=== PATIENT | female | born 1980 | race Caucasian/White ===

== ENCOUNTER 2019-08-17 06:00 | Emergency (ER) | payer OTHER ==
[2019-08-17 07:08] VITALS: TEMP 97.5; BMI 32.5
--- NOTE | 2019-08-17 07:48 | PDOC ---
History of Present Illness - General Chief Complaint: Vaginal Bleeding Stated Complaint: VAGINAL BLEEDING, 15 WKS Time Seen by Provider: 08/17/19 07:34 - History of Present Illness Initial Comments: 08/17/19 08:25 HPI: 39 y/o F ~15-16 weeks gestation by LMP 05/05/19 with hx of pre-DM and HLD presenting with vaginal bleeding since last night. She states it occurred when she went to urinate and was present only on tissue paper. Quantity was scant. She denied any blood clot or hematuria. She reports she's had BL lower abd pain for over a week but when she saw her Ob this past week she was told it was normal. There has been no change in quality, frequency, or intensity of pain. She also reports burning on urination and increased frequency of urination over the past week. She denies fever, chills, chest pain, SHORT, SOB. Of note, she has just established care with her Ob this week and has been scheduled for her first US 1 week from today. PMHx: as noted above ROS: as noted SHx: Denies tobacco use; no alcohol use; no rec drugs Allergies: NKDA ROS: GENERAL/CONSTITUTIONAL: No fever or chills. No weakness. HEAD, EYES, EARS, NOSE AND THROAT: No change in vision. No ear pain or discharge. No sore throat. CARDIOVASCULAR: No chest pain or shortness of breath RESPIRATORY: No cough, wheezing, or hemoptysis. GASTROINTESTINAL: No nausea, vomiting, diarrhea or constipation. GENITOURINARY: No dysuria, frequency, or change in urination. MUSCULOSKELETAL: No joint or muscle swelling or pain. No neck or back pain. SKIN: No rash NEUROLOGIC: No headache, vertigo, loss of consciousness, or change in strength/ sensation. ENDOCRINE: No increased thirst. No abnormal weight change HEMATOLOGIC/LYMPHATIC: No anemia, easy bleeding, or history of blood clots. ALLERGIC/IMMUNOLOGIC: No hives or skin allergy. PE: GENERAL: Awake, alert, and fully oriented, no acute distress HEAD: No signs of trauma, normocephalic, atraumatic EYES: EOMI, sclera anicteric, conjunctiva clear ENT: Auricles normal inspection, hearing grossly normal, nares patent, oropharynx clear without exudates. Moist mucosa NECK: Normal ROM, no lymphadenopathy LUNGS: No increased work of breathing, symmetrical chest rise, clear to auscultation bilaterally, no wheezes, crackles or rhonchi HEART: Regular rate and rhythm, normal S1 and S2, no murmur, peripheral pulses 2 + and equal bilaterally. ABDOMEN: Soft, nondistended, nontender, normoactive bowel sounds. No guarding, no rebound. No masses. No CVAT MUSCULOSKELETAL: Normal inspection, FROM NEUROLOGICAL: Cranial nerves II through XII grossly intact. Normal speech, normal gait, no focal sensorimotor deficits SKIN: Warm, Dry, normal turgor, no rashes or lesions noted Past History - Past Medical History Allergies/Adverse Reactions: Allergies Allergy/AdvReac Type Severity Reaction Status Date / Time No Known Allergies Allergy Verified 08/17/19 07:07 Home Medications: Ambulatory Orders NK [No Known Home Medication] 08/17/19 - Psycho Social/Smoking Cessation Hx Smoking History: Never smoked Hx Alcohol Use: No Drug/Substance Use Hx: No *Physical Exam - Vital Signs Last Vital Signs Temp Pulse Resp BP Pulse Ox 97.5 F L 95 H 19 118/65 98 08/17/19 06:05 08/17/19 06:05 08/17/19 06:05 08/17/19 06:05 08/17/19 06:05 ED Treatment Course - LABORATORY CBC & Chemistry Diagram: 08/17/19 08:00 08/17/19 08:00 Medical Decision Making - Medical Decision Making 08/17/19 08:36 39 y/o F ~15-16 weeks gestation by LMP 05/05/19 with hx of pre-DM and HLD presenting with vaginal bleeding since last night associated with burning urination and increasing urinary freq. VSS, AF. PE unremarkable. DDx includes spontaneous , threatened , missed , UTI -cbc, cmp, ua, ucx, t&s, tvus 08/17/19 09:42 labs unremarkable tvus with 15w3d IUP with no concerning findings pelvic exam performed: normal external genitalia, no discharge os blood in the vault, external os closed, no CMT, no adnexal fullness Discussed results with patient; all questions answered; patient will followup with Ob Discharge - Discharge Information Problems reviewed: Yes Clinical Impression/Diagnosis: Vaginal bleeding Condition: Fair Disposition: HOME - Follow up/Referral Referrals: Jonathan Minor MD [Primary Care Provider] - - Patient Discharge Instructions Patient Printed Discharge Instructions: DI for Vaginal Bleeding During Additional Instructions: Additional Instructions: Please return to the emergency department with any new or worsening symptoms or concerns including fainting, worsening abdominal pain, persistent vomiting. Please follow up with your Obstretician at your appointment next week. Continue taking your vitamins Instrucciones adicionales: Regrese al departamento de emergencias con cualquier sntoma o inquietud nueva o que empeore, incluidos desmayos, empeoramiento del dolor abdominal, vmitos persistentes. Serena un seguimiento con carbone obsttrico en carbone ishmael la prxima semana. Contina tomando tus vitaminas prenatales - Post Discharge Activity
[2019-08-17 08:20] LABS: BASO % 0.2 % (0-2.0); EOS % 1.8 % (0-4.5); HEMATOCRIT 43.1 % (32.4-45.2); HEMOGLOBIN 14.7 GM/dL (10.7-15.3); LYMPH % 18.8 % (8-40); MCH 27.2 pg (25.7-33.7); MEAN CELL VOLUME 79.8 fl (80-96); MEAN PLT VOLUME 7.2 fl (7.5-11.1); MONO % 5.9 % (3.8-10.2); NEUT % 73.3 % (42.8-82.8); PLATELET COUNT 290 K/MM3 (134-434); WHITE BLOOD COUNT 9.4 K/mm3 (4.0-10.0)
[2019-08-17 08:29] LABS: URINE APPEARANCE CLOUDY; URINE BILIRUBIN NEGATIVE (NEGATIVE); URINE COLOR YELLOW; URINE GLUCOSE (UA) NEGATIVE (NEGATIVE); URINE KETONE NEGATIVE (NEGATIVE); URINE LEUK ESTERASE NEGATIVE (NEGATIVE); URINE NITRITE NEGATIVE (NEGATIVE); URINE PROTEIN NEGATIVE (NEGATIVE); URINE UROBILINOGEN 0.2 mg/dL (0.2-1.0)
[2019-08-17 09:07] LABS: ALBUMIN 3.6 g/dl (3.4-5.0); BILIRUBIN,TOTAL 0.2 mg/dL (0.2-1); BLOOD UREA NITROGEN 7.6 mg/dL (7-18); CALCIUM 9.1 mg/dL (8.5-10.1); CREATININE 0.4 mg/dL (0.55-1.3); POTASSIUM 3.6 mmol/L (3.5-5.1); TOT PROT 7.2 g/dl (6.4-8.2)
--- NOTE | 2019-08-17 09:21 | PDOC ---
Attending Attestation - Resident Resident Name: Devyn Simmons - ED Attending Attestation I have performed the following: I have examined & evaluated the patient, The case was reviewed & discussed with the resident, I agree w/resident's findings & plan, Exceptions are as noted - HPI HPI: 08/17/19 09:20 39 F , @ 15 wks by LMP, with h/o preDM and HLD, presenting with vaginal bleeding and cramps. Pt reports spotting that started last night. Denies passage of clots. Denies abdominal pain but notes lower abdominal cramps similar to menstrual cramps. Denies flank pain. Denies F/C. Pt notes some burning with urination. No abnormal discharge. - Physicial Exam PE: 08/17/19 09:21 "GENERAL: Awake, alert, and fully oriented, in no acute distress. HEAD: No signs of trauma EYES: PERRLA, EOMI, sclera anicteric, conjunctiva clear ENT: Auricles normal inspection, hearing grossly normal, nares patent, oropharynx clear without exudates. Moist mucosa NECK: Nontender, no stepoffs, Normal ROM, supple, no lymphadenopathy, JVD, or masses LUNGS: Breath sounds equal, clear to auscultation bilaterally. No wheezes, and no crackles HEART: Regular rate and rhythm, normal S1 and S2, no murmurs, rubs or gallops ABDOMEN: Soft, nontender, normoactive bowel sounds. No guarding, no rebound. No masses EXTREMITIES: Normal range of motion, no edema. No clubbing or cyanosis. No cords, erythema, or tenderness NEUROLOGICAL: Cranial nerves II through XII intact. 5/5 strength and sensation in all extremities, Normal speech, normal gait, normal cerebellar function SKIN: Warm, Dry, normal turgor, no rashes or lesions noted. - Medical Decision Making 08/17/19 09:21 39 F, 15 wks by LMP, presenting to ED with vaginal bleeding and cramps. - Labs, T&S - TVUS Labs unremarkable US shows IUP Pt is well appearing, with normal vitals. Clinically stable for DC at this time. I discussed the physical exam findings, ancillary test results and final diagnoses with the patient. I answered all of the patient's questions. The patient was satisfied with the care received and felt comfortable with the discharge plan and treatment plan. The patient agrees to follow up with the primary care physician within 24-72 hours.
[2019-08-17 12:05] VITALS: BP 112/78; PULSE 78
== END 2019-08-17 09:54 | disposition home or self-care (01) ==
LOC: JER 06:00
DX: O26.892 Other specified pregnancy related conditions, second trimester (principal); O46.92 Antepartum hemorrhage, unspecified, second trimester; Z3A.15 15 weeks gestation of pregnancy; R73.03 Prediabetes; E78.00 Pure hypercholesterolemia, unspecified
CPT/HCPCS: 36415; 76815-TC; 80053; 81003; 84702; 85025; 86850; 86900; 86901; 87086; 99283-25

== ENCOUNTER 2020-01-28 08:49 | Inpatient (IN) | payer OTHER ==
[2020-01-28] MEDS ORDERED: ONDANSETRON 4 MG/2 ML VIAL IVPUSH PRN (09:37)
[2020-01-28] MEDS: ELECTROLYTE-148 SOLN 1,000 ML IV SCH ×2 (09:40→10:20)
[2020-01-28] MEDS ORDERED: morphine SULFATE/PF 0.5 MG/ML (2cc Syringe - QUVA) ONE (10:03)
[2020-01-28] MEDS ORDERED: ceFAZolin SODIUM 1 GM VIAL ONE (10:03)
[2020-01-28] MEDS ORDERED: CITRIC ACID/SODIUM CITRATE 30 ML UNIT-DOSE CUP PO ONE (10:08)
[2020-01-28] MEDS ORDERED: OXYTOCIN 20 UNITS in 0.9% NS 40 UNIT/2,000 ML INFUS.BAG IV ONE (10:17)
--- NOTE | 2020-01-28 10:24 | HP ---
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: Alzheimer's, CVA, Dementia, Migraine, Multiple Sclerosis, Peripheral Neuropathy, Parkinson's, Seizure, Syncope, TIA, Vertigo, Other Cardiovascular: No: AFIB, Aneurysm, Aortic Insufficiency, Aortic Stenosis, CAD, CHF, Deep Vein Thrombosis, HTN, Hyperlipdemia, MO, Mitral Insufficiency, Mitral Stenosis, Murmur, Pulmonary Hypertension, Other Pulmonary: No: Asthma, Bronchitis, Cancer, COPD, O2 Dependent, Pneumonia, Previously Intubated, Pulmonary Embolus, Pulmonary Fibrosis, Sleep Apnea, Other Gastrointestinal: Yes: Other Hepatobiliary: No: Cirrhosis, Cholelithiasis, Cholecystitis, Choledocholithiasis, Hepatitis A, Hepatitis B, Hepatitis C, Other Renal/: No: Renal Failure, Renal Inusuff, BPH, Cancer, Hematuria, Hemodialysis, Neurogenic Bladder, Renal Calculi, UTI, Other Reproductive: No: Ectopic , Endometriosis, Fibroids, PID, Polycystic Ovary Syndrome, Postmenopausal, Other ...: 1 Heme/Onc: No: Anemia, B12 Deficiency, Bleeding Disorder, Cancer, Current Chemotherapy, Current Radiation Therapy, Hemochromatosis, Hypercoaguable State, Myeloproliferative Synd, Sickle Cell Disease, Sickle Cell Trait, Thrombocytopenia, Other Infectious Disease: No: AIDS, C-Diff, Herpes Zoster, HIV, MRSA, STD's, Tuberculosis, VREF, Other Psych: No: Addictions, Anxiety, Bipolar, Depression, Panic, Psychosis, Schizop hrenia, Other Musculoskeletal: No: Bursitis, Chronic low back pain, Hemiparesis, Hemiplegia, Osteoarthritis, Paraplegia, Other Rheumatology: No: Fibromyalgia, Gout, Lupus, Rheumatoid Arthritis, Sarcoidosis, Vasculitis, Other ENT: No: Allergic Rhinitis, Sinusitis, Other Endocrine: Yes: Diabetes Mellitus Dermatology: No: Basal Cell, Cellulitis, Eczema, Melanoma, Psoriasis, Squamous Cell, Other - Past Surgical History Past Surgical History: Yes: Colectomy (laparoscopic sigmoid colectomy and rectopexy) Hx Myomectomy: No Hx Transabdominal Cerclage: No - Smoking History Smoking history: Never smoked - Alcohol/Substance Use Hx Alcohol Use: No Home Medications - Allergies Allergies/Adverse Reactions: Allergies Allergy/AdvReac Type Severity Reaction Status Date / Time No Known Allergies Allergy Verified 08/17/19 07:07 - Home Medications Home Medications: Ambulatory Orders NK [No Known Home Medication] 08/17/19 Family Medical History Family History: Unremarkable Review of Systems - Review of Systems Constitutional: reports: No Symptoms Eyes: reports: No Symptoms HENT: reports: No Symptoms Neck: reports: No Symptoms Cardiovascular: reports: No Symptoms Respiratory: reports: No Symptoms Gastrointestinal: reports: No Symptoms Genitourinary: reports: No Symptoms Breasts: reports: No Symptoms Reported Musculoskeletal: reports: No Symptoms Integumentary: reports: No Symptoms Neurological: reports: No Symptoms Endocrine: reports: No Symptoms Hematology/Lymphatic: reports: No Symptoms Psychiatric: reports: No Symptoms Physical Exam - Maternity Vital Signs: as reported by nursing Constitutional: Yes: Well Nourished, No Distress HENT: Yes: Atraumatic Neck: Yes: Supple Cardiovascular: Yes: Regular Rate and Rhythm Lungs: Other Breast(s): Yes: Other - Abdominal Exam/OB Number of Fetuses: Single Contractions: No Regularity: Irritability Intensity: Unaware Monitor Mode: External Heart Rate (range): 120 Category: I Accelerations: Uniform Decelerations: None - Vaginal Exam/OB Speculum Exam: No Presentation: Transverse/Shoulder - Physical Exam Musculoskeletal: Yes: WNL Extremities: Yes: WNL Edema: Yes Edema: LLE: Trace, RLE: Trace Integumentary: Yes: WNL Deep Tendon Reflex Grade: Normal +2 ...Motor Strength: WNL Psychiatric: Yes: Alert, Oriented Imaging - Results Ultrasound: Report Reviewed Assessment/Plan 39 y/o G1 @ 39.0wks, DM well controlled, h/o of intestinal surgery, desiring PLTCS. All risks and complications of surgery discussed. Informed consent obtained. proceed accordingly declined 's circumcision Monitor FS
[2020-01-28] MEDS ORDERED: IBUPROFEN 800 MG/8 ML IJ IVPB PRN (10:30)
[2020-01-28] MEDS ORDERED: oxyCODONE HCL 5 MG TABLET PO PRN (10:30)
[2020-01-28] MEDS ORDERED: OXYTOCIN 10 UNITS/ML VIAL ONE (10:36)
[2020-01-28] MEDS: OXYTOCIN 20 UNITS in 0.9% NS 20 UNIT/1,000 ML INFUS.BAG IV SCH ×2 (11:00→13:06)
--- NOTE | 2020-01-28 11:25 | OP ---
Operative Note - Note: Operative Date: 01/28/20 (dic# [id number]) Pre-Operative Diagnosis: G1 @ 39.0 wks,h/o laparoscopic sigmoid colectomy and rectopexy Operation: PLTCS Post-Operative Diagnosis: Same as Pre-op Folder Inspector: Kobi Franco Anesthesia: Spinal Estimated Blood Loss (mls): 700 Operative Report Dictated: Yes
[2020-01-28 12:16] VITALS: BMI 36.2
[2020-01-28] MEDS ORDERED: IBUPROFEN 800 MG/8 ML IJ IVPB ONE (14:48)
[2020-01-28] MEDS ORDERED: CEFAZOLIN 1 GM/D5W 1 GM/50 ML BAG IVPB ONE (18:45)
[2020-01-28] MEDS ORDERED: CEFAZOLIN 1 GM in DEXTROSE 5%-WATER - 50 ML IVPB ONE (19:00)
[2020-01-29] MEDS: SIMETHICONE 80 MG TAB.CHEW (FP) PO PRN ×2 (06:17→20:19)
[2020-01-29] MEDS: IBUPROFEN 600 MG TABLET (FP) PO PRN ×2 (06:17→20:18)
[2020-01-29] MEDS: ACETAMINOPHEN 325 MG TABLET (FP) PO PRN ×2 (06:17→20:19)
[2020-01-29 08:23] LABS: BASO % 0.5 % (0-2.0); EOS % 2.1 % (0-4.5); HEMATOCRIT 37.6 % (32.4-45.2); HEMOGLOBIN 12.9 GM/dL (10.7-15.3); LYMPH % 17.3 % (8-40); MCHC 34.4 g/dl (32.0-36.0); MEAN CELL VOLUME 81.4 fl (80-96); MEAN PLT VOLUME 7.6 fl (7.5-11.1); MONO % 6.1 % (3.8-10.2); PLATELET COUNT 293 K/MM3 (134-434); RBC 4.62 M/mm3 (3.60-5.2); RDW 14.5 % (11.6-15.6); WHITE BLOOD COUNT 9.3 K/mm3 (4.0-10.0)
[2020-01-29] MEDS ORDERED: DIPHTH,PERTUSS(ACELL),TET 0.5 ML DISP.SYRIN IM ONE (10:00)
[2020-01-29] MEDS ORDERED: BISACODYL 10 MG SUPP.RECT RC PRN (10:30)
--- NOTE | 2020-01-29 10:36 | OP ---
DATE OF OPERATION: 01/28/2020 PREOPERATIVE DIAGNOSES: A 39-year-old 1 at 39 weeks of gestation, baby in variable presentation, history of laparoscopic sigmoid colectomy and rectopexy, desiring primary section. POSTOPERATIVE DIAGNOSES: A 39-year-old 1 at 39 weeks of gestation, baby in variable presentation, history of laparoscopic sigmoid colectomy and rectopexy, desiring primary section. PROCEDURE: Primary low transverse section. SURGEON: Patric Akhtar MD ACETYLENE TORCH BURNER: ELANA Hanna ANESTHESIA: Spinal. ESTIMATED BLOOD LOSS: 700 mL. URINE: Clear. INTRAVENOUS FLUIDS: Per Anesthesia. COMPLICATIONS: None. FINDINGS: Significant amount of subcutaneous adipose tissue. The fascia was non-fibrotic and not adherent to underlying rectus muscles. The rectus muscles were normal in appearance. No parietal peritoneal visceral adhesions at the point of entry. Lower uterine segment was not effaced. Infant in variable presentation. Clear amniotic fluid. Live viable male. Fundus and bilateral tubes and ovaries consistent with normal anatomy. DESCRIPTION OF PROCEDURE: The patient was taken to the operating room where anesthesia was found to be adequate. She was then prepped and draped in a normal sterile fashion. Urinary Coulter catheter was placed atraumatically. Appropriate timeout took place. Pfannenstiel skin incision was made and carried to the underlying fascia with the Bovie. The fascia was incised in the midline and extended laterally with sharp dissection. The underlying rectus muscles were dissected out sharply and bluntly without difficulty. The rectus muscles were in the midline bluntly, and the peritoneum was entered bluntly. Peritoneal incision was extended laterally with blunt dissection. A bladder blade was placed and findings as previously mentioned. A transverse lower uterine segment was made with the scalpel and extended laterally with the bandage scissors. Amniotomy revealed clear amniotic fluid. Infant was delivered through the surgical incision with mild fundal pressure. The rectus muscles were transected at their medial aspect 1 cm to accommodate for soft tissue dystocia. No nuchal cord was present. Umbilical cord was clamped and cut after delay. The infant was handed off to the waiting NICU staff, crying. The placenta was delivered manually and intact. The uterus was not exteriorized, and the incision edges were secured with T clamps. The uterine incision was reapproximated with 1-0 Polysorb running locked suture. Excellent structural reapproximation and hemostasis with 1 layer suture. Gutters were cleared of all clots and debris. The lower uterine segment again revealed excellent hemostasis. Bladder dome and rectus muscle fascia interface were intact. Fascial incision was reapproximated with 0 Polysorb running, non-locked sutures. Excellent structural reapproximation achieved and confirmed by digital palpation by the surgeon. Subcutaneous tissues were copiously irrigated, and bleeders neutralized with Bovie cautery. Subcutaneous tissues were approximated with 2-0 chromic sutures and skin incision reapproximated with surgical siva. The patient tolerated the procedure well and is going to the recovery room in stable condition. Instrument count was reported as correct x2 by the staff. PATRIC AKHTAR MD [id number] MTDD
--- NOTE | 2020-01-29 10:52 | PN ---
Post Progress Note - Subjective Subjective: ambulating, tolerating PO, lochia decreased, voiding Post Day: 1 Type of Delivery: Primary C/S Vital Signs: Vital Signs Temperature 97.8 F 01/29/20 09:00 Pulse Rate 85 01/29/20 09:00 Respiratory Rate 20 01/29/20 10:00 Blood Pressure 111/78 01/29/20 09:00 O2 Sat by Pulse Oximetry (%) 99 01/28/20 12:31 Breast Exam: Yes: Other Uterus: Yes: Fundus Firm Incision: Yes: Dressing dry and intact, [place] intact Abdomen/GI: Yes: Abdomen soft Lochia, amount: Moderate Extremities: Yes: Calves non-tender Perineum: Yes: Intact Activity: Ambulating - Labs Labs: CBC WBC 9.3 K/mm3 (4.0-10.0) 01/29/20 07:20 RBC 4.62 M/mm3 (3.60-5.2) 01/29/20 07:20 Hgb 12.9 GM/dL (10.7-15.3) 01/29/20 07:20 Hct 37.6 % (32.4-45.2) 01/29/20 07:20 MCV 81.4 fl (80-96) 01/29/20 07:20 MCH 28.0 pg (25.7-33.7) 01/29/20 07:20 MCHC 34.4 g/dl (32.0-36.0) 01/29/20 07:20 RDW 14.5 % (11.6-15.6) 01/29/20 07:20 Plt Count 293 K/MM3 (134-434) 01/29/20 07:20 MPV 7.6 fl (7.5-11.1) 01/29/20 07:20 Absolute Neuts (auto) 6.9 K/mm3 (1.5-8.0) 01/29/20 07:20 Neutrophils % 74.0 % (42.8-82.8) 01/29/20 07:20 Lymphocytes % 17.3 % (8-40) 01/29/20 07:20 Monocytes % 6.1 % (3.8-10.2) 01/29/20 07:20 Eosinophils % 2.1 % (0-4.5) 01/29/20 07:20 Basophils % 0.5 % (0-2.0) 01/29/20 07:20 Nucleated RBC % 0 % (0-0) 01/29/20 07:20 Assessment/Plan POD # 1 in stable condition s/P PTLCS, DM and FS will be measured -follow up FS -Continue PP care -consider d/c on POD # 2 vs 3
--- NOTE | 2020-01-29 14:49 | PN ---
Progress Note (short form) - Note Progress Note: 39F POD#1 for under spinal anesthesia. Pt. doing well this afternoon. Ambulating without difficulty. VSS. Continue with current management per primary team.
[2020-01-30] MEDS: OXYTOCIN 20 UNITS in 0.9% NS 20 UNIT/1,000 ML INFUS.BAG IV SCH (00:26)
[2020-01-30 08:47] VITALS: BP 101/57; PULSE 67; TEMP 97.6
--- NOTE | 2020-01-30 10:54 | DS ---
Physical Examination Vital Signs: Vital Signs Temperature 97.6 F 01/30/20 08:45 Pulse Rate 67 01/30/20 08:45 Respiratory Rate 20 01/30/20 08:45 Blood Pressure 101/57 L 01/30/20 08:45 O2 Sat by Pulse Oximetry (%) 99 01/28/20 12:31 Findings/Remarks: Ambulating, tolerating PO, lochia decreased, passing flatus, voiding, feeling well and desiring to go home Constitutional: Yes: No Distress Eyes: Yes: WNL HENT: Yes: Atraumatic Neck: Yes: Supple Cardiovascular: Yes: Regular Rate and Rhythm Respiratory: Yes: Regular Gastrointestinal: Yes: Normal Bowel Sounds, Soft ...Rectal Exam: Yes: Other Renal/: Yes: Other Breast(s): Yes: Other Musculoskeletal: Yes: Other Extremities: Yes: WNL Edema: Yes Edema: LLE: Trace, RLE: Trace Integumentary: Yes: WNL Wound/Incision: Yes: Clean/Dry, Well Approximated, Sutures Intact Neurological: Yes: Alert, Oriented ...Motor Strength: WNL Psychiatric: Yes: Alert, Oriented Labs: CBC, BMP 01/29/20 07:20 Discharge Summary Problems reviewed: Yes Reason For Visit: Procedures: Principal: PLTCS Hospital Course: Uncomplicated surgery and postop/PP recovery Goals: follow up within a week of discharge at [facility] for incision check Condition: Stable - Instructions Diet, Activity, Other Instructions: Return to regular diet as tolerated and refrain from strenuous activity until cleared by provider. Follow up within a week of discharge for incision check. Take medications as prescribed. Referrals: Thierry Huynh MD [Staff Physician] - Disposition: HOME - Home Medications Comprehensive Discharge Medication List: Ambulatory Orders Acetaminophen [Tylenol] 650 mg PO Q6H PRN #30 capsule MDD 5 01/28/20 Ibuprofen 600 mg PO Q6H PRN #30 tablet 01/28/20 Oxycodone HCl 5 mg PO Q6H PRN 3 Days #12 tablet MDD 5 01/28/20
--- NOTE | 2020-02-03 17:23 | PATH ---
Surgical Pathology Report Patient Name: JUAN C SEALS [facility]. Rec. #: [id number] /Age/Gender: 1980 (Age: 39) / F Account: [id number] Location: [facility] OBS/INTAKE MANAGER Taken: 01/28/2020 Received: 01/31/2020 Reported: 02/03/2020 Physicians: Thierry Huynh MD Specimen(s) Received PLACENTA Clinical History Final Diagnosis A. PLACENTA: THIRD TRIMESTER PLACENTA WITH SUBCHORIONIC FIBRIN DEPOSITION. TRIVASCULAR CORD. MEMBRANES WITH NO DIAGNOSTIC ABNORMALITIES. Electronically Signed Say Coles M.D. Gross Description The specimen is received fresh labeled placenta and is a 624 gram, 17.5 x 13.5 x 3.3 cm. placenta with attached membranes and umbilical cord. The attached membranes are perez, thick, cloudy and insert marginally. The umbilical cord measures 38 cm. in length and averages 1.1 cm. in diameter. The cord inserts eccentrically, 3.5 cm. to the nearest margin. No true knots or strictures are identified. Cut surface of the umbilical cord reveals 3 vessels. The surface is moreno blue with moderate fibrin deposition and appropriate caliber vessels. The maternal surface is red-brown with focal defects. Sectioning reveals red-brown, spongy parenchyma. No lesions are identified. Helpdesk Technician sections are submitted in three cassettes as follows: 1- membrane rolls and umbilical cord; 2-3- full thickness sections of placenta. /02/01/2020 [facility]02/01/2020
== END 2020-01-30 12:20 | disposition home or self-care (01) | DRG 540 ==
LOC: JLDR 08:49 → J3W 16:00
PROVIDERS: ADMIT Student in an Organized Health Care Education/Training Program; ATTEND Student in an Organized Health Care Education/Training Program
PROC: 10D00Z1 Extraction of Products of Conception, Low, Open Approach (ICD-10-PCS; principal; 2020-01-28)
DX: O75.89 Other specified complications of labor and delivery (principal); Z3A.39 39 weeks gestation of pregnancy; Z37.0 Single live birth; Z98.890 Other specified postprocedural states
CPT/HCPCS: 36415; 82962; 85025; 86880; 86900; 86901; 88307-TC